=== PATIENT | female | born 1965 | race Caucasian/White ===

== ENCOUNTER 2024-10-21 09:47 | Day surgery (SDC) | payer MEDICARE ==
[2024-10-20 12:46] VITALS: BMI 34.0
[2024-10-21] MEDS ORDERED: Rocuronium Bromide 10 MG/ML (10ML VIAL) ONE (11:17)
[2024-10-21] MEDS ORDERED: SUGAMMADEX SODIUM 200 MG/2 ML VIAL ONE (11:17)
[2024-10-21] MEDS ORDERED: Lidocaine 1% PF 5 ML VIAL ONE (11:17)
[2024-10-21] MEDS ORDERED: PROPOFOL 40 ML ONE (11:17)
[2024-10-21] MEDS ORDERED: Ondansetron PF 4 MG/2 ML Vial ONE (11:17)
[2024-10-21] MEDS ORDERED: fentaNYL 50 mcg/mL 1 mL Vial ONE (11:17)
[2024-10-21] MEDS ORDERED: EPINEPHrine 1 MG/ML VIAL ONE (11:49)
[2024-10-21] MEDS ORDERED: Mupirocin 2% Ointment 22 GM Tube ONE (11:50)
[2024-10-21] MEDS ORDERED: Ciprofloxacin 0.2% Otic (0.25ML CONTAINER) ONE (11:50)
[2024-10-21] MEDS ORDERED: Lidocaine 1% w/Epinephrine 1:200K 30 ML VIAL ONE (11:50)
[2024-10-21] MEDS ORDERED: Albuterol 2.5 MG (3 mL) NEB ONE (12:53)
== END 2024-10-21 14:09 | disposition home or self-care (01) ==
LOC: CSHSDC 09:47
PROVIDERS: ATTEND Specialist
PROC: 0NB Head and Facial Bones, Excision (ICD-10-PCS; principal; 2024-10-21)
DX: H60.42 Cholesteatoma of left external ear (principal); M19.90 Unspecified osteoarthritis, unspecified site; E78.00 Pure hypercholesterolemia, unspecified; H61.899 Other specified disorders of external ear, unspecified ear; H91.92 Unspecified hearing loss, left ear; H93.8X2 Other specified disorders of left ear; J44.9 Chronic obstructive pulmonary disease, unspecified; E66.9 Obesity, unspecified; Z79.85 Long-term (current) use of injectable non-insulin antidiabetic drugs; Z79.899 Other long term (current) drug therapy; F17.200 Nicotine dependence, unspecified, uncomplicated; Z68.34 Body mass index [BMI] 34.0-34.9, adult; Z79.51 Long term (current) use of inhaled steroids
CPT/HCPCS: 69641; 71045; 93005; J0171; J2405; J2704; J3010; 93010; J7611